=== PATIENT | male | born 1955 | race Caucasian/White ===

== ENCOUNTER 2021-04-22 10:18 | Outpatient (REF) | payer MEDICARE, SELFPAY ==
--- NOTE | ~2021-04-22 | CT_ITS ---
EXAMINATION: CT WRIST WITHOUT CONTRAST, LEFT CLINICAL INFORMATION: Chronic left wrist pain. COMPARISON: Outside left wrist CT dated 12/24/2016. TECHNIQUE: Contiguous axial CT images of the left wrist were obtained without contrast. Multiplanar reformats were provided and reviewed. This CT examination was performed using dose optimization techniques as appropriate, variously including the following: *Automated exposure control *Adjustment of mA and/or kV according to patient size (this includes techniques or standardized protocols for targeted exams where dose is matched to indication/reason for exam; i.e. extremities or head) *Use of iterative reconstruction technique DOSE: 124 mGy-cm FINDINGS: There is severe attenuation/near-complete absence of the lunate with a small focus remaining anteriorly measuring up to 1.1 cm. Findings are new/increased when compared to the prior CT and could represent interval resection versus interval erosion. In the region of the scaphoid, there appear to be 2 corticated osseous structures which are slightly attenuated when compared to the prior examination and may represent the sequela of a chronic scaphoid fracture. There is associated bony remodeling/flattening of the adjacent radial styloid, new when compared to the prior examination. Proximal migration of the capitate as well as the distal carpal row has increased when compared to the prior examination, consistent with [facility] wrist. There is increasing joint space narrowing with bony remodeling and subchondral cystic change throughout the carpal bones, most severe at the 1st carpometacarpal joint. There is no acute fracture. There is no concerning lytic or blastic osseous lesion. Radiocarpal joint effusion with diffuse joint space calcification, slightly more prominent when compared to the prior examination. The visualized muscles and tendons are grossly intact, however, evaluation is significantly limited on CT examination. CT/CT wrist LT wo con IMPRESSION: Significant interval attenuation of the lunate which may represent erosion versus postsurgical change. Persistent, chronic bifid appearance of the scaphoid with interval increase in attenuation. Additional joint space narrowing with bony remodeling, most prominent at the radial styloid and 1st carpometacarpal joints. Radiocarpal joint effusion and diffuse joint space calcification, increased when compared to the prior examination. 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 Associated proximal migration of the distal carpal row, consistent with [facility] wrist. Findings have increased when compared to the prior examination.
== END 2021-04-22 10:19 | disposition home or self-care (01) ==
LOC: HO.CT 10:18
PROVIDERS: Visit Provider Orthopaedic Surgery Hand Surgery
DX: M19.132 Post-traumatic osteoarthritis, left wrist (principal)
CPT/HCPCS: 73200